=== PATIENT | female | born 1975 | race Caucasian/White ===

== ENCOUNTER 2017-08-29 21:34 | Emergency (ER) | payer OTHER ==
[2017-08-29] MEDS ORDERED: KETOROLAC TROMETHAMINE 30 MG/ML SOL IM ONE (21:50)
[2017-08-29] MEDS ORDERED: APAP/OXYCODONE 325/5 TAB PO ONE (21:50)
[2017-08-29] MEDS ORDERED: ONDANSETRON 4 MG ODT BU ONE (21:51)
[2017-08-29] MEDS ORDERED: APAP/OXYCODONE 325/5 TAB ONE (22:13)
[2017-08-29] MEDS ORDERED: ONDANSETRON 4 MG ODT ONE (22:13)
[2017-08-29] MEDS ORDERED: KETOROLAC TROMETHAMINE 30 MG/ML SOL ONE (22:13)
[2017-08-29 23:05] VITALS: RESP 16; O2SAT 98
[2017-08-29] MEDS ORDERED: ONDANSETRON HCL 4 MG/2 ML SOL IV ONE (23:25)
[2017-08-29] MEDS ORDERED: HYDROMORPHONE HCL 2 MG/ML SOL IV ONE (23:25)
[2017-08-29] MEDS ORDERED: HYDROMORPHONE HCL 2 MG/ML SOL ONE (23:37)
[2017-08-29] MEDS ORDERED: ONDANSETRON HCL 4 MG/2 ML SOL ONE (23:37)
[2017-08-29 23:54] LABS: ALBUMIN 4.2 gm/dl (3.4-5.0); CALCIUM 8.9 mg/dl (8.5-10.1)
[2017-08-29 23:55] LABS: HEMATOCRIT 40 % (35-47); MEAN CORPUSCULAR HGB CONC 36.4 gm/dl (32.0-36.0); MEAN CORPUSCULAR VOLUME 91 fL (81-99)
[2017-08-30 00:12] LABS: LYMPHOCYTES % (MANUAL) 37 % (10-50)
[2017-08-30 00:13] LABS: ANISOCYTOSIS SLIGHT AMT; BASOPHILS % (MANUAL) 0 % (0-3); EOSINOPHILS % (MANUAL) 3 % (0-9)
[2017-08-30 00:32] VITALS: TEMP 96.9
[2017-08-30 00:35] VITALS: BP 131/71; PULSE 74
== END 2017-08-30 00:27 | disposition home or self-care (01) ==
LOC: ED 21:34
DX: K80.20 Calculus of gallbladder without cholecystitis without obstruction (principal)
CPT/HCPCS: 80053; 82150; 85007; 85027; 99285; J1170; J1885; J2405; A9270-GY

== ENCOUNTER 2017-09-03 07:15 | Emergency (ER) | payer OTHER ==
[2017-09-03] MEDS ORDERED: HYDROMORPHONE HCL 2 MG/ML SOL IV ONE (07:35)
[2017-09-03] MEDS ORDERED: HYDROMORPHONE HCL 2 MG/ML SOL ONE (07:37)
[2017-09-03 07:50] VITALS: RESP 20
[2017-09-03] MEDS ORDERED: FENTANYL 100MCG/2ML SOL IV ONE (08:03)
[2017-09-03] MEDS ORDERED: FENTANYL 100MCG/2ML SOL ONE (08:04)
[2017-09-03 08:13] VITALS: TEMP 98.8; O2SAT 99
[2017-09-03] MEDS ORDERED: TDAP VACCINE 0.5 ML SUS IM ONE ×2 (08:50→08:52)
[2017-09-03 17:16] VITALS: BP 132/85; PULSE 72
== END 2017-09-03 09:30 | disposition home or self-care (01) ==
LOC: ED 07:15
DX: S42.335A Nondisplaced oblique fracture of shaft of humerus, left arm, initial encounter for closed fracture (principal); W00.9XXA Unspecified fall due to ice and snow, initial encounter; D16.02 Benign neoplasm of scapula and long bones of left upper limb
CPT/HCPCS: 73060; 90471; 90715; 96374; 96375; 99284; J1170; J3010

== ENCOUNTER 2017-09-06 21:28 | Emergency (ER) | payer OTHER ==
[~2017-09-06 21:28] MED LIST: SODIUM CHLORIDE 0.9% FLUSH 10 ML SOL IV PRN
[2017-09-06] MEDS ORDERED: HYDROMORPHONE HCL 2 MG/ML SOL IV ONE (21:47)
[2017-09-06] MEDS ORDERED: ONDANSETRON HCL 4 MG/2 ML SOL IV ONE (21:48)
[2017-09-06 21:51] VITALS: TEMP 98
[2017-09-06] MEDS ORDERED: HYDROMORPHONE HCL 2 MG/ML SOL ONE (21:52)
[2017-09-06] MEDS ORDERED: ONDANSETRON HCL 4 MG/2 ML SOL ONE (21:52)
[2017-09-06 22:32] VITALS: BP 101/64; PULSE 83; RESP 18; O2SAT 98
== END 2017-09-06 22:28 | disposition home or self-care (01) ==
LOC: ED 21:28
DX: K80.20 Calculus of gallbladder without cholecystitis without obstruction (principal)
CPT/HCPCS: 99284; J1170; J2405

== ENCOUNTER 2017-09-07 19:59 | Inpatient (IN) | payer OTHER ==
[2017-09-07] MEDS ORDERED: ONDANSETRON HCL 4 MG/2 ML SOL ONE (20:31)
[2017-09-07] MEDS ORDERED: MORPHINE SULFATE 10 MG/ML SOL ONE ×2 (20:35→23:41)
[2017-09-07 20:41] LABS: ALBUMIN 3.2 gm/dl (3.4-5.0); CALCIUM 8.7 mg/dl (8.5-10.1)
[2017-09-07] MEDS ORDERED: MORPHINE SULFATE 10 MG/ML SOL IV ONE (20:55)
[2017-09-07] MEDS ORDERED: ONDANSETRON HCL 4 MG/2 ML SOL IV ONE (20:55)
[2017-09-07 20:56] LABS: BASOPHILS % (AUTO) 2 % (0-3); EOSINOPHILS % (AUTO) 3 % (0-9); HEMATOCRIT 33 % (35-47); MEAN CORPUSCULAR HGB CONC 34.6 gm/dl (32.0-36.0); MEAN CORPUSCULAR VOLUME 97 fL (81-99); MONOCYTES % (AUTO) 10.3 % (0-12); NEUTROPHILS % (AUTO) 50.2 % (37-80)
[2017-09-07] MEDS ORDERED: ONDANSETRON HCL 4 MG/2 ML SOL IV PRN (23:24)
[2017-09-07] MEDS: MORPHINE SULFATE 10 MG/ML SOL IV PRN (23:47)
[2017-09-07] MEDS: SODIUM CHLORIDE 0.9% 1000ML 1,000 ML IV SCH (23:52)
[2017-09-08] MEDS: APAP/OXYCODONE 325/5 TAB PO PRN ×2 (00:44→10:03)
[2017-09-08] MEDS ORDERED: MORPHINE SULFATE 10 MG/ML SOL ONE ×2 (04:31→07:43)
[2017-09-08] MEDS: MORPHINE SULFATE 10 MG/ML SOL IV PRN ×2 (04:34→07:46)
[2017-09-08] MEDS ORDERED: HYDROMORPHONE 1 MG/ML SYRINGE IV PRN (08:36)
[2017-09-08] MEDS ORDERED: HYDROMORPHONE HCL 2 MG/ML SOL ONE (09:18)
[2017-09-08 09:55] LABS: BASOPHILS % (AUTO) 1 % (0-3); EOSINOPHILS % (AUTO) 3 % (0-9); HEMATOCRIT 34 % (35-47); MEAN CORPUSCULAR HGB CONC 33.7 gm/dl (32.0-36.0); MEAN CORPUSCULAR VOLUME 98 fL (81-99); MONOCYTES % (AUTO) 9.7 % (0-12)
[2017-09-08 10:22] LABS: ALBUMIN 3.3 gm/dl (3.4-5.0); CALCIUM 8.4 mg/dl (8.5-10.1)
[2017-09-08] MEDS: DEXTROSE/SALINE 0.45/KCL 20MEQ 1,000 ML/1,000 ML SOL IV SCH ×2 (11:06→22:05)
[2017-09-08] MEDS: SODIUM CHLORIDE 0.9% 1000ML 1,000 ML IV SCH (11:08)
[2017-09-08] MEDS: HYDROMORPHONE HCL 2 MG/ML SOL IV PRN ×3 (13:30→22:04)
[2017-09-08] MEDS: SODIUM CHLORIDE 0.9% FLUSH 10 ML SOL IV PRN ×3 (13:31→17:55)
[2017-09-08] MEDS ORDERED: HYDROMORPHONE HCL 2 MG/ML SOL IV ONE (14:55)
[2017-09-09] MEDS: HYDROMORPHONE HCL 2 MG/ML SOL IV PRN ×2 (02:27→06:52)
[2017-09-09 07:28] LABS: ALBUMIN 3.1 gm/dl (3.4-5.0); CALCIUM 8.8 mg/dl (8.5-10.1); POTASSIUM 4.2 mMol/L (3.5-5.1)
[2017-09-09 07:29] LABS: BASOPHILS % (AUTO) 1 % (0-3); EOSINOPHILS % (AUTO) 4 % (0-9); HEMATOCRIT 34 % (35-47); MEAN CORPUSCULAR HGB CONC 34.4 gm/dl (32.0-36.0); NEUTROPHILS % (AUTO) 39.7 % (37-80)
[2017-09-09 07:38] LABS: MEAN CORPUSCULAR VOLUME 99 fL (81-99)
[2017-09-09] MEDS: SODIUM CHLORIDE 0.9% FLUSH 10 ML SOL IV PRN (07:48)
[2017-09-09] MEDS: HYDROMORPHONE 1 MG/ML SYRINGE IV PRN ×2 (09:00→11:47)
[2017-09-09] MEDS: DEXTROSE/SALINE 0.45/KCL 20MEQ 1,000 ML/1,000 ML SOL IV SCH ×2 (09:01→19:58)
[2017-09-09] MEDS ORDERED: BUPIVACAINE/EPI 0.5% 10 ML SOL INFIL ONE (13:09)
[2017-09-09] MEDS ORDERED: HYDROMORPHONE HCL 2 MG/ML SOL IV PRN (15:09)
[2017-09-09] MEDS ORDERED: KETOROLAC TROMETHAMINE 30 MG/ML SOL IV ONE (15:36)
[2017-09-09] MEDS ORDERED: MORPHINE SULFATE 10 MG/ML SOL IV PRN (15:37)
[2017-09-09] MEDS: APAP/HYDROCODONE 325/5 TAB PO PRN (19:37)
[2017-09-10] MEDS: APAP/HYDROCODONE 325/5 TAB PO PRN ×4 (04:02→10:20)
[2017-09-10] MEDS: DEXTROSE/SALINE 0.45/KCL 20MEQ 1,000 ML/1,000 ML SOL IV SCH (04:05)
[2017-09-10 09:08] VITALS: BP 129/76; PULSE 60; RESP 16; TEMP 98.8; O2SAT 96
[2017-09-10] MEDS ORDERED: PNEUMOCOCCAL VACCINE 0.5 ML SOL IM ONE (10:15)
== END 2017-09-10 12:20 | disposition home or self-care (01) | DRG 263 ==
LOC: ED 19:59 → ACUTE CARE 21:26
PROVIDERS: ADMIT Emergency Medicine; ATTEND Emergency Medicine
PROC: BF131ZZ Fluoroscopy of Gallbladder and Bile Ducts using Low Osmolar Contrast (ICD-10-PCS; 2017-09-09)
PROC: 0FT44ZZ Resection of Gallbladder, Percutaneous Endoscopic Approach (ICD-10-PCS; principal; 2017-09-09 13:00)
DX: K80.10 Calculus of gallbladder with chronic cholecystitis without obstruction (principal); S42.335 Nondisplaced oblique fracture of shaft of humerus, left arm
CPT/HCPCS: 36415; 74300; 76000; 80053; 82150; 84703; 85025; 90732; 96374; 96375; 99221; 99232; 99283; J1100; J1170; J1885; J2250; J2270; J2405; J2710; J2765; J3010; J7643; A9270-GY; G0008; J2001; J2704

== ENCOUNTER 2017-09-24 11:14 | Outpatient (CLI) | payer OTHER ==
[2017-09-10 09:08] VITALS: O2SAT 96
== END 2017-09-24 11:15 | disposition home or self-care (01) ==
LOC: CONVCARE 11:14
PROVIDERS: ATTEND Orthopaedic Surgery
DX: M84.422D Pathological fracture, left humerus, subsequent encounter for fracture with routine healing (principal)
CPT/HCPCS: 73030

== ENCOUNTER 2017-11-28 14:23 | Outpatient (CLI) | payer OTHER ==
[2017-09-10 09:08] VITALS: O2SAT 96
== END 2017-11-28 14:24 | disposition home or self-care (01) ==
LOC: CONVCARE 14:23
PROVIDERS: ATTEND Orthopaedic Surgery
DX: S42.202D Unspecified fracture of upper end of left humerus, subsequent encounter for fracture with routine healing (principal)
CPT/HCPCS: 73030; 73200

== ENCOUNTER 2019-02-01 21:51 | Observation (INO) | payer MEDICAID, OTHER ==
[2019-02-01] MEDS ORDERED: FENTANYL 100MCG/2ML SOL IV ONE ×2 (22:11→22:50)
[2019-02-01] MEDS: LACTATED RINGERS 1,000 ML IV SCH (22:15)
[2019-02-01] MEDS ORDERED: FENTANYL 100MCG/2ML SOL ONE ×2 (22:16→22:42)
[2019-02-01] MEDS ORDERED: LORAZEPAM 2 MG/ML SOL IV PRN (23:34)
[2019-02-01] MEDS ORDERED: LORAZEPAM 0.5 MG TAB PO PRN (23:34)
[2019-02-01] MEDS ORDERED: ONDANSETRON HCL 4 MG/2 ML SOL IV PRN (23:34)
[2019-02-01] MEDS ORDERED: FENTANYL 100MCG/2ML SOL IV PRN (23:45)
[2019-02-02] MEDS: SODIUM CHLORIDE 0.9% FLUSH 10 ML SOL IV SCH ×2 (00:18→07:31)
[2019-02-02] MEDS: LACTATED RINGERS 1,000 ML IV SCH ×2 (01:12→11:07)
[2019-02-02] MEDS ORDERED: FENTANYL 100MCG/2ML SOL ONE ×3 (04:48→12:04)
[2019-02-02] MEDS: FENTANYL 100MCG/2ML SOL IV PRN ×2 (08:35→12:08)
[2019-02-02 12:16] VITALS: BP 118/76; PULSE 118; TEMP 98.4
[2019-02-02] MEDS ORDERED: DEXTROSE/SALINE 0.45/KCL 20MEQ 1,000 ML/1,000 ML SOL IV ONE (12:49)
[2019-02-02] MEDS ORDERED: DEXTROSE/SALINE 0.45/KCL 20MEQ 1,000 ML/1,000 ML SOL IV SCH (13:00)
[2019-02-02 13:18] VITALS: O2SAT 92
[2019-02-02 14:07] VITALS: RESP 20
== END 2019-02-02 15:35 | disposition home or self-care (01) | DRG 563 ==
LOC: ED 21:51 → ACUTE CARE 23:23
PROVIDERS: ADMIT Family Medicine; ATTEND Family Medicine
DX: S42.355A Nondisplaced comminuted fracture of shaft of humerus, left arm, initial encounter for closed fracture (principal); F10.129 Alcohol abuse with intoxication, unspecified
CPT/HCPCS: 73020; 82962; 93012; 94762; 96365; 96374; 99218; 99285; J2060; J2405; J3010; A9270-GY

== ENCOUNTER 2019-02-09 13:08 | Outpatient (CLI) | payer MEDICAID | END 2019-02-09 13:09 | disposition home or self-care (01) | DRG 561 | LOC: CONVCARE 13:08 | PROVIDERS: ATTEND Orthopaedic Surgery | DX: S42.301D Unspecified fracture of shaft of humerus, right arm, subsequent encounter for fracture with routine healing (principal) | CPT/HCPCS: 73060 ==